=== PATIENT | female | born 1950 | race Caucasian/White ===

== ENCOUNTER 2020-05-03 10:33 | Outpatient (CLI) | payer MEDICARE ==
--- NOTE | 2020-05-03 13:03 | MMO ---
Bilateral MAMMO Bilat Screen [facility]. CLINICAL HISTORY: Patient is 70 years old and is seen for screening. The patient has no family history of breast cancer. The patient has no personal history of cancer. VIEWS: The views performed were: bilateral craniocaudal with tomosynthesis and bilateral mediolateral oblique with tomosynthesis. This study has been interpreted with the assistance of computer-aided detection. MAMMOGRAM FINDINGS: There are scattered fibroglandular densities. There is a focal asymmetry measuring 5 millimeters seen in the anterior upper-outer region of the left breast. In the right breast, there are no suspicious masses, calcifications or areas of architectural distortion. IMPRESSION: FOCAL ASYMMETRY IN THE LEFT BREAST REQUIRES ADDITIONAL EVALUATION. ADDITIONAL IMAGING. THE RESULTS OF THIS EXAM WERE SENT TO THE PATIENT. ACR BI-RADS Category 0 - Incomplete: Need additional imaging evaluation. [facility] will notify the patient of the need for additional imaging services. Recommend diagnostic mammogram and focused breast ultrasound. MAMMOGRAPHY NOTE: 1. A negative mammogram report should not delay a biopsy if a dominant of clinically suspicious mass is present. 2. Approximately 10% to 15% of breast cancers are not detected by mammography. 3. Adenosis and dense breasts may obscure an underlying neoplasm. Reported by: HADLEY MCMAHON MD Electonically Signed: [id number]
== END 2020-05-03 10:34 | disposition home or self-care (01) ==
LOC: BICMAMMO 10:33
PROVIDERS: ATTEND Family Medicine
DX: Z12.31 Encounter for screening mammogram for malignant neoplasm of breast (principal); N64.89 Other specified disorders of breast
CPT/HCPCS: 77063; 77067

== ENCOUNTER 2020-05-07 12:33 | Outpatient (CLI) | payer MEDICARE ==
--- NOTE | 2020-05-07 13:02 | MMO ---
Left Breast MAMMO Unilat Diag [facility] LT+ESDRAS. CLINICAL HISTORY: Patient is 70 years old and is seen for additional evaluation requested at current screening. The patient has no family history of breast cancer. The patient has no personal history of cancer. VIEWS: The views performed were: left craniocaudal spot compression with tomosynthesis; left mediolateral oblique spot compression with tomosynthesis; and left mediolateral with tomosynthesis. FILMS COMPARED: The present examination has been compared to a prior imaging study performed at [facility] on 05/03/2020. This study has been interpreted with the assistance of computer-aided detection. MAMMOGRAM FINDINGS: There are scattered fibroglandular densities. There are no suspicious masses, suspicious calcifications, or new areas of architectural distortion. The asymmetry seen at screening mammography does not persist at additional imaging, compatible with superimposed tissue. IMPRESSION: THERE IS NO MAMMOGRAPHIC EVIDENCE OF MALIGNANCY. A ROUTINE FOLLOW-UP MAMMOGRAM IN 1 YEAR IS RECOMMENDED. THE RESULTS OF THIS EXAM WERE SENT TO THE PATIENT. ACR BI-RADS Category 1 - Negative MAMMOGRAPHY NOTE: 1. A negative mammogram report should not delay a biopsy if a dominant of clinically suspicious mass is present. 2. Approximately 10% to 15% of breast cancers are not detected by mammography. 3. Adenosis and dense breasts may obscure an underlying neoplasm. Reported by: JEFFERSON JACOB MD Electonically Signed: [id number]
== END 2020-05-07 12:34 | disposition home or self-care (01) ==
LOC: BICMAMMO 12:33
PROVIDERS: ATTEND Family Medicine
DX: R92.2 Inconclusive mammogram (principal)
CPT/HCPCS: 77065; G0279

== ENCOUNTER 2022-08-14 13:06 | Outpatient (CLI) | payer MEDICARE | END 2022-08-14 13:07 | disposition home or self-care (01) | LOC: BICMAMMO 13:06 | PROVIDERS: ATTEND Family Medicine | DX: Z12.31 Encounter for screening mammogram for malignant neoplasm of breast (principal) | CPT/HCPCS: 77063; 77067 ==

== ENCOUNTER 2023-09-14 10:06 | Outpatient (CLI) | payer MEDICARE | END 2023-09-14 10:07 | disposition home or self-care (01) | LOC: BICMAMMO 10:06 | PROVIDERS: ATTEND Family Medicine | DX: Z12.31 Encounter for screening mammogram for malignant neoplasm of breast (principal) | CPT/HCPCS: 77063; 77067 ==

== ENCOUNTER 2024-04-29 23:18 | Inpatient (IN) | payer MEDICARE ==
[2024-04-30] MEDS ORDERED: Morphine 4 MG/ML VIAL ONE ×2 (00:36→02:04)
[2024-04-30 01:22] LABS: #Basophils 0.05 10x3/uL (0.0-0.2); %Basophils 0.4 % (0.0-1.0); %Eosinophils 1.2 % (0.0-10.0); %Lymphocytes 8.9 % (21.0-51.0); %Monocytes 4.6 % (0.0-10.0); %Neutrophils 84.6 % (42.0-75.0); Hematocrit 38.2 % (36.0-47.0); Hemoglobin 12.2 g/dL (12.0-16.0); Mean Corpuscular HGB CONC 31.9 g/dL (32.0-36.0); Mean Corpuscular Hemoglobin 27.2 pg (27.0-31.0); Mean Corpuscular Volume 85.1 fL (78.0-98.0); Mean Platelet Volume 9.3 fL (7.4-10.4); Platelet Count 304 10x3/uL (130-400); Red Blood Cell (RBC) Count 4.49 mill/uL (4.20-5.40)
[2024-04-30 01:44] LABS: ALT (SGPT) 11 U/L (8-55); AST (SGOT) 20 U/L (5-34); Albumin 4.1 g/dL (3.4-4.8); Alkaline Phosphatase 59 U/L (40-110); Anion Gap 15 mmol/L (10-20); BUN (Urea Nitrogen) 17 mg/dL (9.8-20.1); Bilirubin, Total 0.2 mg/dL (0.2-1.2); Calc. Creatinine Clearance 0 mL/min (70-130); Calcium 9.6 mg/dL (7.8-10.44); Carbon Dioxide 21 mmol/L (23-31); Chloride 105 mmol/L (98-107); Estimated GFR 77; Globulin 3.1 g/dL (2.4-3.5); Glucose 128 mg/dL (83-110); Potassium 4.3 mmol/L (3.5-5.1); Protein, Total 7.2 g/dL (5.8-8.1); Sodium 137 mmol/L (136-145)
[2024-04-30] MEDS ORDERED: Ketorolac Tromethamine 30 MG (1 mL) VIAL ONE (02:04)
[2024-04-30] MEDS ORDERED: hydrALAZINE 20 MG/ML VIAL SLOW IVP PRN (02:54)
[2024-04-30] MEDS ORDERED: Glucagon 1 MG/ML KIT IM PRN (02:54)
[2024-04-30] MEDS ORDERED: Morphine 2 MG/ML VIAL SLOW IVP PRN (02:54)
[2024-04-30] MEDS ORDERED: Acetaminophen 325 MG TAB PO PRN (02:54)
[2024-04-30] MEDS ORDERED: Ondansetron PF 4 MG/2 ML Vial IVP PRN ×2 (02:54→03:15)
[2024-04-30] MEDS ORDERED: Ipratropium/Albuterol 3 ML NEB NEB PRN (02:54)
[2024-04-30] MEDS ORDERED: Ondansetron ODT 4 MG TAB PO PRN (02:54)
[2024-04-30] MEDS ORDERED: Dextrose 50% Abboject 50 ML SYRINGE SLOW IVP PRN (02:54)
[2024-04-30] MEDS ORDERED: Dextrose 5% in Water 1,000 ML IV PRN (02:54)
[2024-04-30] MEDS: Lactated Ringer's 1,000 ML IV SCH (03:48)
[2024-04-30 05:04] LABS: #Basophils 0.03 10x3/uL (0.0-0.2); #Eosinphils Less than 0.03 10x3/uL (0.0-0.7); %Basophils 0.3 % (0.0-1.0); %Eosinophils 0.2 % (0.0-10.0); %Lymphocytes 8.7 % (21.0-51.0); %Monocytes 5.1 % (0.0-10.0); %Neutrophils 85.4 % (42.0-75.0); Hematocrit 36.4 % (36.0-47.0); Hemoglobin 11.5 g/dL (12.0-16.0); Mean Corpuscular HGB CONC 31.6 g/dL (32.0-36.0); Mean Corpuscular Hemoglobin 27.4 pg (27.0-31.0); Mean Corpuscular Volume 86.9 fL (78.0-98.0); Mean Platelet Volume 9.4 fL (7.4-10.4); Platelet Count 284 10x3/uL (130-400); Red Blood Cell (RBC) Count 4.19 mill/uL (4.20-5.40)
[2024-04-30 05:25] LABS: Anion Gap 12 mmol/L (10-20); BUN (Urea Nitrogen) 15 mg/dL (9.8-20.1); Calc. Creatinine Clearance 0 mL/min (70-130); Calcium 9.3 mg/dL (7.8-10.44); Carbon Dioxide 23 mmol/L (23-31); Chloride 105 mmol/L (98-107); Estimated GFR 83; Glucose 132 mg/dL (83-110); Potassium 4.2 mmol/L (3.5-5.1); Sodium 136 mmol/L (136-145)
[2024-04-30] MEDS: Cyclobenzaprine 10 MG TAB PO PRN (07:56)
[2024-04-30] MEDS: Famotidine 20 MG TAB PO SCH (07:56)
[2024-04-30] MEDS: traMADol HCl 50 MG TAB PO PRN (08:06)
[2024-04-30] MEDS: Morphine 4 MG/ML VIAL SLOW IVP PRN (11:44)
[2024-04-30 13:59] VITALS: BMI 31.3
[2024-04-30] MEDS ORDERED: EPINEPHrine 1 MG/ML VIAL ONE (15:45)
[2024-04-30] MEDS ORDERED: Bupivacaine PF 0.5% 30 ML VIAL ONE (15:45)
[2024-04-30] MEDS ORDERED: Vancomycin 1 GM VIAL ONE (15:45)
[2024-04-30] MEDS ORDERED: fentaNYL 50 mcg/mL 1 mL Vial ONE ×4 (16:24→19:06)
[2024-04-30] MEDS ORDERED: CEFAZOLIN 2 GM VIAL ONE (16:29)
[2024-04-30] MEDS ORDERED: Sodium Chloride 0.9% 100 ML ONE (16:29)
[2024-04-30] MEDS ORDERED: Rocuronium Bromide 10 MG/ML (10ML VIAL) ONE (16:51)
[2024-04-30] MEDS ORDERED: fentaNYL PF 100 MCG/2 ML SYRINGE ONE (16:51)
[2024-04-30] MEDS ORDERED: Lidocaine 2% PF 5 ML VIAL ONE (16:51)
[2024-04-30] MEDS ORDERED: PROPOFOL 20 ML ONE (16:52)
[2024-04-30] MEDS ORDERED: NEOSTIGMINE 3 MG/3 ML SYR 3 MG/3 ML SYRINGE ONE (17:07)
[2024-04-30] MEDS ORDERED: PHENYLEPHRINE-NS 100 MCG/ML 10 ML SYRINGE ONE (17:07)
[2024-04-30] MEDS ORDERED: Glycopyrrolate 0.2 MG/ML 5 ML SYRINGE ONE (17:07)
[2024-04-30] MEDS ORDERED: Dexamethasone 20 MG/5 ML VIAL ONE (17:10)
[2024-04-30] MEDS ORDERED: HYDROcodone/Acetaminophen 10/325 mg Tablet PO PRN (18:32)
[2024-04-30] MEDS ORDERED: Communication Order-Pharmacy FS SCH (18:45)
[2024-04-30] MEDS: Aspirin 81 mg Enteric Coated Tablet PO SCH (21:07)
[2024-04-30] MEDS: HYDROcodone/Acetaminophen 10/325 mg Tablet PO PRN (22:07)
[2024-05-01] MEDS: CEFAZOLIN 2 GM in Sodium Chloride 0.9% 100 ML IVPB SCH (00:16)
[2024-05-01] MEDS: Ketorolac Tromethamine 30 MG (1 mL) VIAL IVP SCH (00:39)
[2024-05-01 05:46] LABS: #Basophils Less than 0.03 10x3/uL (0.0-0.2); #Eosinphils Less than 0.03 10x3/uL (0.0-0.7); %Basophils 0.1 % (0.0-1.0); %Lymphocytes 7.6 % (21.0-51.0); %Monocytes 6.1 % (0.0-10.0); %Neutrophils 85.8 % (42.0-75.0); Hematocrit 35.2 % (36.0-47.0); Hemoglobin 11.2 g/dL (12.0-16.0); Mean Corpuscular HGB CONC 31.8 g/dL (32.0-36.0); Mean Corpuscular Hemoglobin 27.7 pg (27.0-31.0); Mean Corpuscular Volume 87.1 fL (78.0-98.0); Mean Platelet Volume 9.3 fL (7.4-10.4); Platelet Count 299 10x3/uL (130-400); RBC Distribution Width 15.1 % (11.5-14.5); Red Blood Cell (RBC) Count 4.04 mill/uL (4.20-5.40)
[2024-05-01] MEDS: Enoxaparin 30 MG (0.3 mL) SYRINGE SC SCH (21:11)
[2024-05-02] MEDS ORDERED: Polyethylene Glycol 3350 17 GM Packet PO PRN (05:57)
[2024-05-02] MEDS: Rosuvastatin 10 MG TAB PO SCH (09:13)
[2024-05-02] MEDS: Lisinopril 20 MG TAB PO SCH (09:13)
[2024-05-02] MEDS: Senokot S 8.6-50 MG TAB PO SCH (09:13)
[2024-05-03] MEDS: Polyethylene Glycol 3350 17 GM Packet PO SCH (08:07)
[2024-05-03 11:39] VITALS: BP 138/70; TEMP 98.4
== END 2024-05-03 13:15 | disposition home or self-care (01) | DRG 482 ==
LOC: ERS 23:18 → SJJU 04-30 02:54
PROVIDERS: ADMIT Student in an Organized Health Care Education/Training Program; ATTEND Student in an Organized Health Care Education/Training Program
PROC: 0QS704Z Reposition Left Upper Femur with Internal Fixation Device, Open Approach (ICD-10-PCS; principal; 2024-04-30)
DX: S72.22XA Displaced subtrochanteric fracture of left femur, initial encounter for closed fracture (principal); D72.829 Elevated white blood cell count, unspecified; E78.00 Pure hypercholesterolemia, unspecified; I10 Essential (primary) hypertension; W01.0XXA Fall on same level from slipping, tripping and stumbling without subsequent striking against object, initial encounter; E66.9 Obesity, unspecified; Y93.89 Activity, other specified; Y92.89 Other specified places as the place of occurrence of the external cause; Z68.31 Body mass index [BMI] 31.0-31.9, adult
CPT/HCPCS: 36415; 71045; 72170; 80053; 85025; 93005; 96361; 96374; 96375; 96376; C1713; J0171; J0665; J1100; J1650; J1885; J2001; J2270; J2704; J3010; J3370; J3490; J7120

== ENCOUNTER 2024-10-14 15:01 | Outpatient (CLI) | payer MEDICARE | END 2024-10-14 15:02 | disposition home or self-care (01) | LOC: BICMAMMO 15:01 | PROVIDERS: ATTEND Family Medicine | DX: Z12.31 Encounter for screening mammogram for malignant neoplasm of breast (principal) | CPT/HCPCS: 77063; 77067 ==

== ENCOUNTER 2025-10-23 09:18 | Outpatient (CLI) | payer MEDICARE | END 2025-10-23 09:19 | disposition home or self-care (01) | LOC: BICMAMMO 09:18 | PROVIDERS: ATTEND Student in an Organized Health Care Education/Training Program | DX: Z12.31 Encounter for screening mammogram for malignant neoplasm of breast (principal); Z80.3 Family history of malignant neoplasm of breast | CPT/HCPCS: 77063; 77067 ==